=== PATIENT | female | born 1990 | race Two or more races ===

== ENCOUNTER 2016-10-03 08:20 | Inpatient (IN) | payer BC ==
[~2016-10-03] VITALS: Ht 152.4 cm; Wt 69.8 kg
[2016-10-03 08:28] VITALS: BP 138/92
[2016-10-03] MEDS ORDERED: D5%-LACTATED RINGERS 1,000 ML IV SCH (08:54)
[2016-10-03] MEDS ORDERED: OXYTOCIN 30U/ 0.9% NaCL 500ML 500 ML IV ONE (08:54)
[2016-10-03] MEDS ORDERED: METOCLOPRAMIDE 5 MG/ML, 2ML IVPush PRN (09:00)
[2016-10-03] MEDS ORDERED: ONDANSETRON 2MG/ML, 2ML IVPush PRN (09:00)
[2016-10-03] MEDS ORDERED: SODIUM CITRATE/CITRIC ACID 30 ML UDC PO PRN (09:00)
[2016-10-03] MEDS ORDERED: FENTANYL PF 100 MCG/2ML IV PRN (09:00)
[2016-10-03] MEDS: LACTATED RINGERS 1,000 ML IV SCH ×2 (09:03→14:51)
[2016-10-03 09:21] LABS: HEMATOCRIT 37.8 % (34.6-47.8); HEMOGLOBIN 12.4 g/dL (11.7-16.4); WHITE BLOOD COUNT 8.7 x10^3/uL (3.4-10)
[2016-10-03] MEDS ORDERED: MISOPROSTOL 200 MCG TABLET ONE (09:25)
[2016-10-03] MEDS ORDERED: LIDOCAINE 1%, 20ML ONE (09:25)
[2016-10-03] MEDS ORDERED: OXYTOCIN 30U/ 0.9% NaCL 500ML 500 ML ONE (09:25)
[2016-10-03] MEDS ORDERED: NEWBORN KIT ONE (09:25)
[2016-10-03 09:31] LABS: ASPARTATE AMINO TRANSFERASE 22 U/L (15-37); BLOOD UREA NITROGEN 12 mg/dL (7-18)
[2016-10-03] MEDS ORDERED: OXYTOCIN 30U/ 0.9% NaCL 500ML 500 ML IV PRN (09:52)
[2016-10-03] MEDS ORDERED: ONDANSETRON 2MG/ML, 2ML ONE (11:12)
[2016-10-03] MEDS ORDERED: FENTANYL PF 100 MCG/2ML ONE ×4 (11:15→14:33)
[2016-10-03] MEDS: FENTANYL PF 100 MCG/2ML IVPush PRN ×4 (11:18→14:35)
[2016-10-03] MEDS: OXYTOCIN 30U/ 0.9% NaCL 500ML 500 ML IV SCH (16:27)
[2016-10-03] MEDS ORDERED: RHOGAM FROM BLOOD BANK 1 NOTE EA IM/IV ONE (16:30)
[2016-10-03] MEDS ORDERED: CALCIUM CARBONATE 500 MG TAB.CHEW PO PRN (16:30)
[2016-10-03] MEDS ORDERED: MAGNESIUM HYDROXIDE 8%, 30ML UDC PO PRN (16:30)
[2016-10-03] MEDS ORDERED: MISOPROSTOL 200 MCG TABLET PR PRN (16:30)
[2016-10-03] MEDS ORDERED: OXYcodone/APAP 5/325MG TABLET PO PRN (16:30)
[2016-10-03] MEDS ORDERED: DIPH,PERTUSS(ACELL),TET VAC/PF NC IM-VACC PRN (16:30)
[2016-10-03] MEDS ORDERED: ONDANSETRON 2MG/ML, 2ML IV PRN (16:30)
[2016-10-03] MEDS ORDERED: MEASLES,MUMPS&RUBELLA VACC/PF 0.5 ML SQ-VACC PRN (16:30)
[2016-10-03] MEDS ORDERED: DOCUSATE 100 MG CAPSULE PO PRN (16:30)
[2016-10-03] MEDS ORDERED: ACETAMINOPHEN 325 MG TABLET PO PRN ×2 (16:30)
[2016-10-03] MEDS ORDERED: IBUPROFEN 600 MG TABLET ONE (16:34)
[2016-10-03] MEDS: IBUPROFEN 600 MG TABLET PO PRN (16:37)
[2016-10-03] MEDS ORDERED: OXYcodone/APAP 5/325MG TABLET ONE (18:02)
[2016-10-03] MEDS: OXYcodone/APAP 5/325MG TABLET PO PRN (18:05)
[2016-10-03 18:20] VITALS: BP 112/72
[2016-10-03 21:05] VITALS: BP 101/69
[2016-10-04] MEDS: OXYTOCIN 30U/ 0.9% NaCL 500ML 500 ML IV SCH ×2 (02:27→12:27)
[2016-10-04] MEDS: IBUPROFEN 600 MG TABLET PO PRN ×2 (07:55→16:28)
[2016-10-04 08:30] VITALS: BP 103/67
[2016-10-04] MEDS ORDERED: PRENATAL VIT/IRON/FA 1 EACH TABLET PO SCH (09:00)
[2016-10-04 09:55] LABS: HEMATOCRIT 33.1 % (34.6-47.8); HEMOGLOBIN 10.8 g/dL (11.7-16.4); WHITE BLOOD COUNT 18.9 x10^3/uL (3.4-10)
[2016-10-04] MEDS ORDERED: OXYC-302 PO (15:06)
[2016-10-04] MEDS ORDERED: IBUP-1222 PO (15:07)
[2016-10-04] MEDS: OXYcodone/APAP 5/325MG TABLET PO PRN (16:30)
== END 2016-10-04 18:40 | disposition home or self-care (01) | DRG 775 ==
LOC: LDOP 08:20 → LDIP 08:51 → 2NW 19:13
PROVIDERS: ADMIT Obstetrics & Gynecology; ATTEND Obstetrics & Gynecology
PROC: 0HQ9XZZ Repair Perineum Skin, External Approach (ICD-10-PCS; principal; 2016-10-03)
PROC: 10E0XZZ Delivery of Products of Conception, External Approach (ICD-10-PCS; 2016-10-03)
PROC: 10907ZC Drainage of Amniotic Fluid, Therapeutic from Products of Conception, Via Natural or Artificial Opening (ICD-10-PCS; 2016-10-03)
DX: O24.429 Gestational diabetes mellitus in childbirth, unspecified control (principal); O70.0 First degree perineal laceration during delivery; Z37.0 Single live birth; Z3A.38 38 weeks gestation of pregnancy
CPT/HCPCS: 36415; 80053; 82962; 84550; 85025; 86850; 86900; J2405; J3010; J2590; J7120

== ENCOUNTER 2017-12-14 01:06 | Outpatient (CLI) | payer BC ==
[~2017-12-14 01:06] MED LIST: IBUP-1222 PO; OXYC-302 PO
[2017-12-14 01:45] VITALS: BP 123/77
[2017-12-14 01:52] LABS: MICROSCOPIC NOT IND
[2017-12-14 02:02] LABS: AMPHETAMINE SCREEN, URINE Negative (Negative); BARBITURATE SCREEN, URINE Negative (Negative); BENZODIAZEPINE SCREEN, URINE Negative (Negative); CANNABINOID SCREEN, URINE Negative (Negative); COCAINE SCREEN, URINE Negative (Negative); METHADONE SCREEN, URINE Negative (Negative); OPIATE SCREEN, URINE Negative (Negative)
== END 2017-12-14 02:22 | disposition home or self-care (01) ==
LOC: LDOP 01:06
PROVIDERS: ATTEND Obstetrics & Gynecology
DX: Z34.82 Encounter for supervision of other normal pregnancy, second trimester (principal); Z3A.24 24 weeks gestation of pregnancy
CPT/HCPCS: 59025; 80307; 81003; 87086; 99211; G0463

== ENCOUNTER 2018-03-26 03:22 | Inpatient (IN) | payer BC ==
[~2018-03-26] VITALS: Ht 152.4 cm; Wt 65.5 kg
[2018-03-26] MEDS ORDERED: OXYTOCIN 30U/ 0.9% NaCL 500ML 500 ML IV ONE (21:30)
[2018-03-26] MEDS ORDERED: OXYTOCIN 30U/ 0.9% NaCL 500ML 500 ML IV PRN (21:30)
[2018-03-26] MEDS ORDERED: MISOPROSTOL 25 MCG TABLET VG PRN (21:30)
[2018-03-26] MEDS ORDERED: LACTATED RINGERS 1,000 ML IV SCH (21:30)
[2018-03-26] MEDS ORDERED: ONDANSETRON 2MG/ML, 2ML IVPush PRN (21:30)
[2018-03-26] MEDS ORDERED: CALCIUM CARBONATE 500 MG TAB.CHEW PO PRN (21:30)
[2018-03-26] MEDS ORDERED: FENTANYL PF 100 MCG/2ML IV PRN (21:30)
[2018-03-26] MEDS ORDERED: NEWBORN KIT ONE (21:33)
[2018-03-26 21:50] VITALS: BP 120/84
[2018-03-26 21:54] LABS: BASOPHILS # (AUTO) 0.02 x10^3/uL (0-0.1); BASOPHILS % (AUTO) 0 % (0-1); EOSINOPHILS # (AUTO) 0.03 x10^3/uL (0-0.4); EOSINOPHILS % (AUTO) 0 % (1-7); LYMPHOCYTES # (AUTO) 1.98 x10^3/uL (1-3.4); LYMPHOCYTES % (AUTO) 28 % (22-44); MD NO; MEAN CORPUSCULAR HGB CONC 32.5 g/dL (32.4-35.8); MEAN CORPUSCULAR VOLUME 83.1 fL (80-100); MEAN PLATELET VOLUME 8.4 fL (7.4-10.4); MONOCYTES # (AUTO) 0.39 x10^3/uL (0.2-0.8); MONOCYTES % (AUTO) 6 % (2-9); NEUTROPHILS # (AUTO) 4.57 x10^3/uL (1.8-6.8); NEUTROPHILS % (AUTO) 65 % (42-75); PLATELET COUNT 328 x10^3/uL (130-400); RED BLOOD COUNT 4.47 x10^6/uL (3.82-5.3); RED CELL DISTRIBUTION WIDTH 15.3 % (9.6-15.2)
[2018-03-26] MEDS: PLEASE ENTER HEIGHT AND WEIGHT MC SCH (22:00)
[2018-03-26] MEDS ORDERED: OXYTOCIN 30U/ 0.9% NaCL 500ML 500 ML ONE (22:04)
[2018-03-26] MEDS ORDERED: PREN1TAB60 PO (22:54)
[2018-03-26] MEDS ORDERED: LIDOCAINE 1%, 20ML ONE (23:20)
[2018-03-26] MEDS ORDERED: MISOPROSTOL 200 MCG TABLET ONE (23:20)
[2018-03-27] MEDS ORDERED: FENTANYL PF 100 MCG/2ML ONE ×3 (00:37→02:49)
[2018-03-27] MEDS: FENTANYL PF 100 MCG/2ML IVPush PRN ×2 (00:45→01:58)
[2018-03-27] MEDS ORDERED: FENTANYL/BUPIV./NS/PF 250 ML EPIDCONT SCH (02:40)
[2018-03-27] MEDS ORDERED: LACTATED RINGERS 1,000 ML IVBOLUS PRN (03:00)
[2018-03-27] MEDS ORDERED: BISACODYL 10 MG SUPP PR PRN (04:00)
[2018-03-27] MEDS ORDERED: ONDANSETRON 2MG/ML, 2ML IV PRN (04:00)
[2018-03-27] MEDS ORDERED: GLYCERIN ADULT SUPP PR PRN (04:00)
[2018-03-27] MEDS ORDERED: OXYcodone/APAP 5/325MG TABLET PO PRN ×2 (04:00)
[2018-03-27] MEDS ORDERED: METHYLERGONOVINE 0.2 MG/ML IM PRN (04:00)
[2018-03-27] MEDS ORDERED: METOCLOPRAMIDE 5 MG/ML, 2ML IV PRN (04:00)
[2018-03-27] MEDS ORDERED: MISOPROSTOL 200 MCG TABLET PR PRN (04:00)
[2018-03-27] MEDS ORDERED: ACETAMINOPHEN 325 MG TABLET PO PRN ×3 (04:00)
[2018-03-27] MEDS ORDERED: IBUPROFEN 600 MG TABLET ONE (04:02)
[2018-03-27] MEDS ORDERED: OXYcodone/APAP 5/325MG TABLET ONE (04:03)
[2018-03-27] MEDS: IBUPROFEN 600 MG TABLET PO PRN ×3 (04:05→19:52)
[2018-03-27] MEDS ORDERED: OXYTOCIN 30U/ 0.9% NaCL 500ML 500 ML ONE (04:38)
[2018-03-27 05:25] VITALS: BP 96/61
[2018-03-27] MEDS: LACTATED RINGERS 1,000 ML IV SCH ×3 (05:30→19:35)
[2018-03-27] MEDS: PLEASE ENTER HEIGHT AND WEIGHT MC SCH (06:00)
[2018-03-27] MEDS: OXYTOCIN 30U/ 0.9% NaCL 500ML 500 ML IV SCH ×3 (06:03→23:57)
[2018-03-27 07:30] VITALS: BP 102/62
[2018-03-27] MEDS: PRENATAL VIT/IRON/FA 1 EACH TABLET PO SCH (10:18)
[2018-03-27 11:30] VITALS: BP 115/75
[2018-03-27 11:43] LABS: BASOPHILS # (AUTO) 0.04 x10^3/uL (0-0.1); BASOPHILS % (AUTO) 0 % (0-1); EOSINOPHILS # (AUTO) 0.01 x10^3/uL (0-0.4); EOSINOPHILS % (AUTO) 0 % (1-7); LYMPHOCYTES # (AUTO) 1.73 x10^3/uL (1-3.4); LYMPHOCYTES % (AUTO) 16 % (22-44); MD NO; MEAN CORPUSCULAR HEMOGLOBIN 27.9 pg (27.0-34.8); MEAN CORPUSCULAR VOLUME 84.3 fL (80-100); MEAN PLATELET VOLUME 8.3 fL (7.4-10.4); MONOCYTES # (AUTO) 0.69 x10^3/uL (0.2-0.8); MONOCYTES % (AUTO) 6 % (2-9); NEUTROPHILS # (AUTO) 8.53 x10^3/uL (1.8-6.8); NEUTROPHILS % (AUTO) 78 % (42-75); PLATELET COUNT 308 x10^3/uL (130-400); RED BLOOD COUNT 4.27 x10^6/uL (3.82-5.3); RED CELL DISTRIBUTION WIDTH 15.7 % (9.6-15.2)
[2018-03-27 15:30] VITALS: BP 106/70
[2018-03-27 19:35] VITALS: BP 102/65
[2018-03-27] MEDS: DOCUSATE 100 MG CAPSULE PO PRN (19:52)
[2018-03-28 00:30] VITALS: BP 103/69
[2018-03-28] MEDS: LACTATED RINGERS 1,000 ML IV SCH (02:40)
[2018-03-28] MEDS: IBUPROFEN 600 MG TABLET PO PRN (04:40)
[2018-03-28 07:30] VITALS: BP 105/69
[2018-03-28] MEDS ORDERED: IBUP-1222 PO (08:23)
[2018-03-28] MEDS: PRENATAL VIT/IRON/FA 1 EACH TABLET PO SCH (08:32)
[2018-03-28] MEDS: DOCUSATE 100 MG CAPSULE PO PRN (08:32)
[2018-03-28] MEDS: OXYTOCIN 30U/ 0.9% NaCL 500ML 500 ML IV SCH (09:57)
== END 2018-03-28 11:45 | disposition home or self-care (01) | DRG 768 ==
LOC: LDIP 21:27 → 2NW 03-27 05:38
PROVIDERS: ADMIT Obstetrics & Gynecology; ATTEND Obstetrics & Gynecology
PROC: 10E0XZZ Delivery of Products of Conception, External Approach (ICD-10-PCS; principal; 2018-03-27)
PROC: 0TQDXZZ Repair Urethra, External Approach (ICD-10-PCS; 2018-03-27)
DX: O24.420 Gestational diabetes mellitus in childbirth, diet controlled (principal); Z37.0 Single live birth; O71.5 Other obstetric injury to pelvic organs; O99.52 Diseases of the respiratory system complicating childbirth; Z3A.39 39 weeks gestation of pregnancy; J45.909 Unspecified asthma, uncomplicated
CPT/HCPCS: 36415; 82962; 85025; 86850; 86900; G0378; J3010; J2590; J7120

== ENCOUNTER 2019-10-30 17:08 | Outpatient (CLI) | payer BC ==
[~2019-10-30] VITALS: Ht 152.4 cm; Wt 67.2 kg
[~2019-10-30 17:08] MED LIST changes: +PREN1TAB60 PO
[2019-10-30 17:26] VITALS: BP 109/63
[2019-10-30 17:57] LABS: MICROSCOPIC INDICATED
== END 2019-10-30 18:59 | disposition home or self-care (01) ==
LOC: LDOP 17:08
PROVIDERS: ATTEND Obstetrics & Gynecology
DX: O26.893 Other specified pregnancy related conditions, third trimester (principal); R10.9 Unspecified abdominal pain; Z3A.29 29 weeks gestation of pregnancy
CPT/HCPCS: 59025; 81001; 87086

== ENCOUNTER → 2019-12-31 | Outpatient (CLI) | payer BC | END | disposition home or self-care (01) | LOC: STAR 14:27 | PROVIDERS: ATTEND Obstetrics & Gynecology | DX: Z20.828 Contact with and (suspected) exposure to other viral communicable diseases (principal) | CPT/HCPCS: 87635 ==

== ENCOUNTER 2020-01-05 06:25 | Inpatient (IN) | payer BC ==
[~2020-01-05] VITALS: Ht 152.4 cm; Wt 67.7 kg
[2020-01-05] MEDS ORDERED: LACTATED RINGERS 1,000 ML IV SCH ×2 (06:30→10:00)
[2020-01-05] MEDS ORDERED: ONDANSETRON 2MG/ML, 2ML IVPush PRN (06:30)
[2020-01-05] MEDS ORDERED: TERBUTALINE 1 MG/ML, 1ML IVPush PRN (06:30)
[2020-01-05] MEDS ORDERED: MISOPROSTOL 25 MCG TABLET VG PRN (06:30)
[2020-01-05] MEDS ORDERED: D5%-LACTATED RINGERS 1,000 ML IV SCH (06:30)
[2020-01-05] MEDS ORDERED: OXYTOCIN 30U/ 0.9% NaCL 500ML 500 ML IV PRN (06:30)
[2020-01-05] MEDS ORDERED: FENTANYL PF 100 MCG/2ML IVPush PRN (06:30)
[2020-01-05] MEDS ORDERED: METOCLOPRAMIDE 5 MG/ML, 2ML IVPush PRN (06:30)
[2020-01-05] MEDS ORDERED: FENTANYL PF 100 MCG/2ML IV PRN (06:30)
[2020-01-05] MEDS ORDERED: SODIUM CITRATE/CITRIC ACID 30 ML UDC PO PRN (06:30)
[2020-01-05] MEDS ORDERED: TERBUTALINE 1 MG/ML, 1ML SQ PRN (06:30)
[2020-01-05] MEDS ORDERED: OXYTOCIN 30U/ 0.9% NaCL 500ML 500 ML IV ONE (06:30)
[2020-01-05] MEDS ORDERED: NEWBORN KIT ONE (06:54)
[2020-01-05] MEDS ORDERED: PLEASE ENTER HEIGHT AND WEIGHT MC SCH (07:00)
[2020-01-05 07:14] LABS: BASOPHILS % (AUTO) 1 % (0-1); EOSINOPHILS % (AUTO) 1 % (1-7); LYMPHOCYTES % (AUTO) 27 % (22-44); MEAN CORPUSCULAR HEMOGLOBIN 27.4 pg (27.0-34.8); MEAN PLATELET VOLUME 8.4 fL (7.4-10.4); MONOCYTES % (AUTO) 5 % (2-9); NEUTROPHILS % (AUTO) 66 % (42-75); PLATELET COUNT 268 x10^3/uL (130-400); RED BLOOD COUNT 4.33 x10^6/uL (3.82-5.3); RED CELL DISTRIBUTION WIDTH 15.3 % (9.6-15.2)
[2020-01-05 07:27] LABS: MD NO
[2020-01-05] MEDS ORDERED: LIDOCAINE 1%, 20ML ONE (07:39)
[2020-01-05] MEDS ORDERED: MISOPROSTOL 200 MCG TABLET ONE (07:39)
[2020-01-05] MEDS ORDERED: OXYTOCIN 30U/ 0.9% NaCL 500ML 500 ML ONE ×2 (07:40→16:22)
[2020-01-05] MEDS ORDERED: BUPIVACAINE 0.25% ONE (09:33)
[2020-01-05] MEDS ORDERED: FENTANYL/BUPIV./NS/PF 250 ML EPIDCONT ONE (09:34)
[2020-01-05] MEDS ORDERED: LACTATED RINGERS 1,000 ML IVBOLUS PRN (10:00)
[2020-01-05] MEDS ORDERED: EPHEDRINE 50 MG/ML, 1ML IVPush PRN (10:00)
[2020-01-05] MEDS ORDERED: FENTANYL/BUPIV./NS/PF 250 ML EPIDCONT SCH (10:00)
[2020-01-05] MEDS ORDERED: ACETAMINOPHEN 325 MG TABLET PO PRN (15:30)
[2020-01-05] MEDS ORDERED: SIMETHICONE 80 MG CHEW TAB PO PRN (15:30)
[2020-01-05] MEDS ORDERED: METHYLERGONOVINE 0.2 MG/ML IM PRN (15:30)
[2020-01-05] MEDS ORDERED: CARBOPROST TROMETHAMINE 250 MCG/ML, 1ML IM PRN (15:30)
[2020-01-05] MEDS ORDERED: MISOPROSTOL 200 MCG TABLET PR PRN (15:30)
[2020-01-05] MEDS ORDERED: METOCLOPRAMIDE 5 MG/ML, 2ML IV PRN (15:30)
[2020-01-05] MEDS ORDERED: OXYcodone/APAP 5/325MG TABLET PO PRN (15:30)
[2020-01-05] MEDS ORDERED: ONDANSETRON 2MG/ML, 2ML IV PRN (15:30)
[2020-01-05] MEDS ORDERED: DOCUSATE 100 MG CAPSULE PO PRN (15:30)
[2020-01-05] MEDS ORDERED: IBUPROFEN 600 MG TABLET ONE (15:55)
[2020-01-05] MEDS: IBUPROFEN 600 MG TABLET PO PRN ×2 (15:57→22:41)
[2020-01-05] MEDS: OXYTOCIN 30U/ 0.9% NaCL 500ML 500 ML IV SCH (16:24)
[2020-01-05 17:12] VITALS: BP 105/68
[2020-01-05 19:40] VITALS: BP 107/68
[2020-01-06 00:08] LABS: BASOPHILS % (AUTO) 0 % (0-1); EOSINOPHILS % (AUTO) 1 % (1-7); LYMPHOCYTES % (AUTO) 19 % (22-44); MEAN CORPUSCULAR HEMOGLOBIN 27.2 pg (27.0-34.8); MEAN CORPUSCULAR HGB CONC 32.6 g/dL (32.4-35.8); MEAN PLATELET VOLUME 8.6 fL (7.4-10.4); MONOCYTES % (AUTO) 6 % (2-9); NEUTROPHILS % (AUTO) 74 % (42-75); PLATELET COUNT 236 x10^3/uL (130-400); RED BLOOD COUNT 4.24 x10^6/uL (3.82-5.3); RED CELL DISTRIBUTION WIDTH 15.1 % (9.6-15.2)
[2020-01-06 00:09] LABS: MD NO
[2020-01-06 00:30] VITALS: BP 104/71
[2020-01-06] MEDS: OXYTOCIN 30U/ 0.9% NaCL 500ML 500 ML IV SCH (01:30)
[2020-01-06] MEDS: OXYcodone/APAP 5/325MG TABLET PO PRN ×3 (02:49→12:47)
[2020-01-06 05:00] VITALS: BP 105/72
[2020-01-06] MEDS: IBUPROFEN 600 MG TABLET PO PRN ×2 (07:28→13:29)
[2020-01-06 07:46] VITALS: BP 94/58
[2020-01-06] MEDS ORDERED: OXYC-302 PO (08:37)
[2020-01-06] MEDS ORDERED: PRENATAL VIT/IRON/FA 1 EACH TABLET PO SCH (09:00)
[2020-01-06 12:45] VITALS: BP 110/64
== END 2020-01-06 16:18 | disposition home or self-care (01) | DRG 807 ==
LOC: LDIP 06:25 → 2NW 17:05
PROVIDERS: ADMIT Obstetrics & Gynecology; ATTEND Obstetrics & Gynecology
PROC: 10E0XZZ Delivery of Products of Conception, External Approach (ICD-10-PCS; principal; 2020-01-05)
PROC: 10907ZC Drainage of Amniotic Fluid, Therapeutic from Products of Conception, Via Natural or Artificial Opening (ICD-10-PCS; 2020-01-05)
PROC: 3E0R3BZ Introduction of Anesthetic Agent into Spinal Canal, Percutaneous Approach (ICD-10-PCS; 2020-01-05)
PROC: 00HU33Z Insertion of Infusion Device into Spinal Canal, Percutaneous Approach (ICD-10-PCS; 2020-01-05)
DX: O24.420 Gestational diabetes mellitus in childbirth, diet controlled (principal); Z37.0 Single live birth; Z3A.39 39 weeks gestation of pregnancy
CPT/HCPCS: 36415; 82962; 85025; 86592; 86850; 86900; G0378; J2590; J3010; J7120